=== PATIENT | male | born 2000 ===

== ENCOUNTER → 2021-07-29 | Outpatient (CLI) | payer OTHER ==
[2021-07-29 18:33] LABS: BASOPHILS ABSOLUTE AUTO 0.08 K/mm3 (0.00-0.23); BASOPHILS PERCENT AUTO 1 % (0-2); EOSINOPHILS ABSOLUTE AUTO 0.28 K/mm3 (0.00-0.68); EOSINOPHILS PERCENT AUTO 5 % (0-6); Hematocrit 47.8 % (37.0-53.0); Hemoglobin 16.4 g/dL (13.5-17.5); IMMATURE GRAN ABSOLUTE AUTO 0.01 K/mm3 (0.00-0.10); IMMATURE GRAN PERCENT AUTO 0 % (0-1); LYMPHOCYTES ABSOLUTE AUTO 2.08 K/mm3 (0.84-5.20); LYMPHOCYTES PERCENT AUTO 36 % (21-46); MONOCYTES PERCENT AUTO 9 % (4-13); Mean Corpuscular HGB 30.7 pg (26.0-34.0); Mean Corpuscular HGB Conc 34.3 g/dL (31.5-36.5); Mean Corpuscular Volume 89 fL (80-100); Mean Platelet Volume 10.1 fL (9.1-12.4); NEUTROPHILS ABSOLUTE AUTO 2.91 K/mm3 (1.96-9.15); NEUTROPHILS PERCENT AUTO 50 % (41-73); Platelet Count 325 K/mm3 (150-400); RDW Coefficient Variation 11.3 % (11.7-14.2); RDW Standard Deviation 36.9 fL (35.1-46.3); Red Blood Cell Count 5.35 M/mm3 (4.30-5.90); White Blood Cell Count 5.86 K/mm3 (4.00-11.30)
[2021-07-29 19:28] LABS: Percent Saturation 57.9 % (20.0-50.0)
[2021-07-29 19:32] LABS: Albumin, Blood 4.7 g/dL (3.4-5.0); Albumin/Globulin Ratio 1.5 (0.8-1.8); Bilirubin, Total 0.9 mg/dL (0.1-1.0); Bun/Creatinine Ratio 20.5 (12.0-20.0); Calcium, Blood 9.5 mg/dL (8.5-10.1); Creatinine, Blood 0.78 mg/dL (0.60-1.20); Globulin, Blood 3.1 g/dL (2.2-4.0); Thyroid Stimulating Hormone 1.81 uIU/mL (0.360-4.800); Total Protein, Blood 7.8 g/dL (6.4-8.2)
== END | disposition home or self-care (01) ==
LOC: LAB SHORT 16:00
PROVIDERS: Nurse Practitioner Family
DX: G47.00 Insomnia, unspecified (principal); F32.A Depression, unspecified
CPT/HCPCS: 80053; 82306; 82728; 83540; 83550; 84443; 85025